=== PATIENT | male | born 1995 | race Caucasian/White ===

== ENCOUNTER 2025-03-26 11:37 | Emergency (ER) | payer MEDICAID ==
[~2025-03-26] VITALS: Ht 177.8 cm; Wt 100.0 kg
[~2025-03-26 11:37] MED LIST: ACET-3385 PO; AMOX-457 PO; IBUP-1492 PO
[2025-03-26 11:43] VITALS: BP 121/78; PULSE 85; RESP 16; TEMP 98.2; O2SAT 96
[2025-03-26 12:12] LABS: COVID AG,FIA SOURCE NASAL SWAB
[2025-03-26 12:37] LABS: RAPID GROUP A STREP PRELIM. NEGATIVE (NEGATIVE)
[2025-03-26 12:40] LABS: INFLUENZA TYPE A NEGATIVE FOR TYPE A (NEGATIVE); INFLUENZA TYPE B NEGATIVE FOR TYPE B (NEGATIVE)
[2025-03-26 12:41] LABS: SARS-COV2 (COVID) ANTIGEN,FIA Negative (Negative)
[2025-03-26] MEDS ORDERED: CEFP200T12 PO (13:25)
[2025-03-26] MEDS ORDERED: ONDA-104 PO (13:25)
== END 2025-03-26 13:44 | disposition home or self-care (01) ==
LOC: EMS 11:37
DX: H66.92 Otitis media, unspecified, left ear (principal); Z79.899 Other long term (current) drug therapy; Z20.822 Contact with and (suspected) exposure to COVID-19
CPT/HCPCS: 87081; 87430; 87804; 99283